=== PATIENT | female | born 1950 | race African-American/Black ===

== ENCOUNTER 2016-05-26 08:41 | Emergency (ER) | payer MEDICARE ==
[2016-05-26] MEDS ORDERED: LIDOCAINE 5% (700 MG) TRANSDERMAL ADH..PATCH TP ONE (10:51)
[2016-05-26 11:10] LABS: APPEARANCE,URINE CLEAR; BILIRUBIN,URINE NEGATIVE (NEGATIVE); GLUCOSE, URINE NEGATIVE (NEGATIVE); KETONES,URINE NEGATIVE (NEGATIVE); LEUKOCYTE ESTERASE,URINE TRACE (NEGATIVE); NITRITE,URINE NEGATIVE (NEGATIVE); PROTEIN,URINE 100 mg/dL (NEGATIVE); URINE SPECIFIC GRAVITY 1.017
[2016-05-26] MEDS ORDERED: MAGNESIUM CITRATE 296 ML BOTTLE PO ONE (12:42)
[2016-05-26] MEDS ORDERED: ONDANSETRON ODT 4 MG TAB (6 TAB/DSPK) PO PRN (12:42)
--- NOTE | 2016-05-26 12:46 | ER Document Report ---
ED General - General Chief Complaint: Flank Pain Stated Complaint: SIDE PAIN TRAVEL OUTSIDE OF THE [place] IN LAST 30 DAYS: No - HPI Patient complains to provider of: right flank pain Notes: Patient coming in for right flank pain ongoing for last 4 days. Patient denies any fevers chills nausea vomiting. Patient states difficult to move around states last bowel movement was 5 days ago. Patient states she does have a history of constipation the past she states that she is constipated again. Patient denies any urinary symptoms denies history of kidney stone - Related Data Allergies/Adverse Reactions: codeine Allergy (Verified 05/26/16 08:46) Past Medical History - Social History Smoking Status: Current Every Day Smoker Chew tobacco use (# tins/day): No Frequency of alcohol use: None Drug Abuse: None Family History: Reviewed & Not Pertinent Patient has suicidal ideation: No Patient has homicidal ideation: No Renal/ Medical History: Denies: Hx Peritoneal Dialysis Review of Systems - Review of Systems Constitutional: No symptoms reported EENT: No symptoms reported Cardiovascular: No symptoms reported Respiratory: No symptoms reported Gastrointestinal: No symptoms reported Genitourinary: Flank pain - Right Female Genitourinary: No symptoms reported Musculoskeletal: No symptoms reported Skin: No symptoms reported Hematologic/Lymphatic: No symptoms reported Neurological/Psychological: No symptoms reported -: Yes All other systems reviewed and negative Physical Exam - Vital signs Vitals: Temp Pulse Resp BP Pulse Ox 98.4 F 64 20 164/91 H 100 05/26/16 08:48 05/26/16 08:48 05/26/16 08:48 05/26/16 08:48 05/26/16 08:48 Interpretation: Normal - General General appearance: Appears well, Alert - HEENT Head: Normocephalic, Atraumatic Eyes: Normal Pupils: PERRL - Respiratory Respiratory status: No respiratory distress Chest status: Nontender Breath sounds: Normal Chest palpation: Normal - Cardiovascular Rhythm: Regular Heart sounds: Normal auscultation Murmur: No - Abdominal Inspection: Normal Distension: No distension Bowel sounds: Normal Tenderness: Nontender. No: Tender, McBurney's point, Echavarria's sign, Guarding, Rebound Organomegaly: No organomegaly - Back Back: Normal, Tender - Tenderness to the right paraspinal region - Extremities General upper extremity: Normal inspection, Nontender, Normal color, Normal ROM , Normal temperature General lower extremity: Normal inspection, Nontender, Normal color, Normal ROM , Normal temperature, Normal weight bearing. No: Reginaldo's sign - Neurological Neuro grossly intact: Yes Cognition: Normal Orientation: AAOx4 [place] Coma Scale Eye Opening: Spontaneous [place] Coma Scale Verbal: Oriented Nick Coma Scale Motor: Obeys Commands [place] Coma Scale Total: 15 Speech: Normal Motor strength normal: LUE, RUE, LLE, RLE Sensory: Normal - Psychological Associated symptoms: Normal affect, Normal mood - Skin Skin Temperature: Warm Skin Moisture: Dry Skin Color: Normal Course - Re-evaluation Re-evalutation: 05/26/16 18:38 Patient's KUB showed moderate stool burden in the right side of the colon. Patient will be treated with mag citrate and Zofran. Patient was encouraged to follow-up with her doctor. No signs of acute abdominal pathology. - Vital Signs Vital signs: Temp Pulse Resp BP Pulse Ox 99.3 F 51 L 20 142/75 H 99 05/26/16 13:09 05/26/16 13:09 05/26/16 08:48 05/26/16 13:09 05/26/16 13:09 - Laboratory Laboratory results interpreted by me: 05/26/16 10:55 Urine Protein 100 H Urine Urobilinogen 4.0 H Ur Leukocyte Esterase TRACE H Discharge - Discharge Clinical Impression: Constipation Qualifiers: Constipation type: unspecified constipation type Qualified Code(s): K59.00 - Constipation, unspecified Condition: Good Disposition: HOME, SELF-CARE Instructions: Constipation ([facility]) Additional Instructions: Your x-ray shows constipation especially on the right side of the colon. More likely this is why you are having right-sided abdominal pain. I will give you a bottle of mag citrate. Drink the entire bottle. This will help relieve your constipation. Follow-up with your primary care physician. Take Tylenol and Motrin for your pain Prescriptions: Ondansetron [Zofran Odt 4 mg Tablet] 1 - 2 tab PO Q4H PRN #15 tab.rapdis PRN Reason: For Nausea/Vomiting Referrals: LISSETH BLUM MD [Primary Care Provider] - Follow up in 3-5 days
[2016-05-26 13:21] VITALS: BP 142/75
== END 2016-05-26 13:26 | disposition home or self-care (01) ==
LOC: ER 08:41
DX: K59.00 Constipation, unspecified (principal); R10.9 Unspecified abdominal pain; F17.200 Nicotine dependence, unspecified, uncomplicated; Z88.5 Allergy status to narcotic agent
CPT/HCPCS: 99284; 81001; 74000; J3490; A9270

== ENCOUNTER → 2016-06-03 | Outpatient (CLI) | payer MEDICARE | LOC: RAD 08:35 | PROVIDERS: ATTEND Family Medicine | DX: M54.5 Low back pain (principal) | CPT/HCPCS: 72148 ==

== ENCOUNTER 2016-07-19 19:37 | Emergency (ER) | payer MEDICARE ==
[2016-07-19 20:13] LABS: ABSOLUTE EOSINOPHILS # (AUTO) 0.2 10^3/uL (0.0-0.6); ABSOLUTE LYMPHOCYTES (AUTO) 2.9 10^3/uL (0.5-4.7); ABSOLUTE MONOCYTES (AUTO) 0.7 10^3/uL (0.1-1.4); ABSOLUTE NEUT (AUTO) 4.4 10^3/uL (1.7-8.2); BASOPHILS % (AUTO) 0.3 % (0-2); EOSINOPHILS % (AUTO) 1.9 % (0-6); HEMATOCRIT 38.2 % (36.0-47.0); HEMOGLOBIN 12.8 g/dL (12.0-15.5); HGB HCT DIFFERENCE 0.2; LYMPHOCYTES % (AUTO) 35.3 % (13-45); MEAN CORPUSCULAR HEMOGLOBIN 29.3 pg (27.0-33.4); MEAN CORPUSCULAR HGB CONC 33.4 g/dL (32.0-36.0); MEAN CORPUSCULAR VOLUME 88 fl (80-97); MONOCYTES % (AUTO) 8.1 % (3-13); RED BLOOD COUNT 4.36 10^6/uL (3.72-5.28); RED CELL DISTRIBUTION WIDTH 14.3 % (11.5-14.0); SEGMENTED NEUTROPHILS % (AUTO) 54.4 % (42-78); WHITE BLOOD COUNT 8.1 10^3/uL (4.0-10.5)
[2016-07-19 20:18] LABS: PROTHROMBIN TIME 12.1 SEC (11.4-15.4)
[2016-07-19 20:19] LABS: PARTIAL THROMBOPLASTIN TIME 28.6 SEC (23.5-35.8)
[2016-07-19 20:32] LABS: ALANINE AMINOTRANSFERASE 20 U/L (9-52); ALBUMIN 4.2 g/dL (3.5-5.0); ALKALINE PHOSPHATASE 112 U/L (38-126); ANION GAP 14 (5-19); ASPARTATE AMINO TRANSFERASE 18 U/L (14-36); BILIRUBIN,DIRECT 0.3 mg/dL (0.0-0.4); BILIRUBIN,TOTAL 0.5 mg/dL (0.2-1.3); BLOOD UREA NITROGEN 18 mg/dL (7-20); CALCIUM 9.9 mg/dL (8.4-10.2); CARBON DIOXIDE 25 mmol/L (22-30); CHLORIDE 106 mmol/L (98-107); CREATINE KINASE 176 U/L (30-135); CREATININE RESULT 1.74 mg/dL (0.52-1.25); GLUCOSE 193 mg/dL (75-110); POTASSIUM 3.3 mmol/L (3.6-5.0); SODIUM 145.1 mmol/L (137-145); TOTAL PROTEIN 7.3 g/dL (6.3-8.2)
[2016-07-19] MEDS ORDERED: ALTEPLASE INJ 100 MG VIAL IV ONE (20:36)
[2016-07-19 20:44] LABS: CREATINE KINASE MB 1.36 ng/mL (<4.55); TROPONIN I 0.016 ng/mL
--- NOTE | 2016-07-19 20:54 | ER Document Report ---
ED General - General Chief Complaint: S/S of Possible Stroke Stated Complaint: STROKE SYMPTONS Mode of Arrival: Medic Information source: Relative, Emergency Med Personnel Notes: This is a 65-year-old female with a history of hypertension who presents with a possible stroke. Per EMS and per the family the last known normal was 1855 tonight at [facility]. At about 1900, family noted that the patient seemed abruptly confused and had a right-sided facial droop. She was not conversant and started stumbling. She was noted to fall into a seat. EMS was notified. Family states that patient has no prior history of stroke and has had no history of [employer] bleed or tumor in the past. She has had no surgical procedures in the past 3 months. She is not on any anticoagulants. TRAVEL OUTSIDE OF THE [place] IN LAST 30 DAYS: No - Related Data Allergies/Adverse Reactions: codeine Allergy (Verified 05/26/16 08:46) Past Medical History - General Information source: Relative Cannot obtain history due to: Altered mental status - Social History Smoking Status: Unknown if Ever Smoked Frequency of alcohol use: None Drug Abuse: None Family History: Reviewed & Not Pertinent - Past Medical History Cardiac Medical History: Reports: Hx Hypertension Renal/ Medical History: Denies: Hx Peritoneal Dialysis Surgical Hx: Negative - Immunizations Hx Diphtheria, Pertussis, Tetanus Vaccination: No Review of Systems - Review of Systems -: Yes ROS unobtainable due to patient's medical condition Physical Exam - Vital signs Vitals: Resp Pulse Ox 17 97 07/19/16 19:56 07/19/16 19:56 - Notes Notes: PHYSICAL EXAMINATION: GENERAL: obtunded, will open eyes on command with L gaze preference. She is maintainin her airway. HEAD: Atraumatic, normocephalic. EYES: Pupils 2-3mm bilaterally and sluggish ENT: nares patent, oropharynx clear without exudates. Moist mucous membranes. NECK: no lymphadenopathy LUNGS: Breath sounds clear to auscultation bilaterally and equal. No wheezes rales or rhonchi. HEART: bradycardic, regular ABDOMEN: Soft, normoactive bowel sounds EXTREMITIES: no edema NEUROLOGICAL: R facial droop. L gaze preference. Aphasia. Not following commands. Does have occasional purposeful movements to LUE and LLE (noted to scratch her nose). SKIN: Warm, Dry, normal turgor, no rashes or lesions noted. Course - Re-evaluation Re-evalutation: 07/19/16 20:51 Patient presents with symptoms of acute ischemic stroke. CT dimension with no hemorrhage but there is hyperdensity in the left MCA region. I discussed the case with neurology at [facility] Dr. Person and we discussed the NIH stroke scale which at this time is 22. At this time there are no contraindications to TPA administration. Patient has been hypertensive however her blood pressure has been below 185/110. She is on no anticoagulants. Her platelets are within normal limits. She has not had recent surgery. There was no seizure at stroke onset. She is deemed a candidate for tPA. Long discussion held with the family. We discussed the possible risks versus benefits of TPA administration and questions were answered. Family agrees to proceed in order to attempt to give patient best chance at neurologic recovery. They do understand the risk of cerebral hemorrhage or . 07/19/16 21:59 Patient has been reevaluated multiple times. At this time the critical care transport team is here to transport her to [facility]. Patient is more alert and is following some commands. She is moving right upper extremity. She is making unintelligible noises but still not speaking. Her blood pressure systolic is 199 at this point but she does seem to be anxious and uncomfortable. Discussed with the transport crew and we will give 50 g of fentanyl and 0.5 mg of Ativan and monitor her blood pressure response. - Vital Signs Vital signs: Temp Pulse Resp BP Pulse Ox 97.6 F 48 L 21 H 179/92 H 100 07/19/16 20:19 07/19/16 20:36 07/19/16 21:22 07/19/16 21:22 07/19/16 21:22 - Laboratory Result Diagrams: 07/19/16 19:59 07/19/16 19:59 Laboratory results interpreted by me: 07/19/16 07/19/16 07/19/16 19:54 19:59 19:59 RDW 14.3 H Sodium 145.1 H Potassium 3.3 L Creatinine 1.74 H Est GFR ( Amer) 36 L Est GFR (Non-Af Amer) 29 L Glucose 193 H POC Glucose 179 H Creatine Kinase 176 H - Diagnostic Test Radiology reviewed: Image reviewed - CT head: mild hyperdensity L MCA CXR: no acute process, Reports reviewed Critical Care Note - Critical Care Note Total time excluding time spent on procedures (mins): 60 - minutes of critical care time spent in direct contact evaluating and reevaluating the patient, treating symptoms, reviewing labs and studies and speaking with family and consultants excluding any procedures Discharge - Discharge Clinical Impression: Received intravenous tissue plasminogen activator (tPA) in emergency department CVA (cerebral vascular accident) Qualifiers: CVA mechanism: unspecified Qualified Code(s): I63.9 - Cerebral infarction, unspecified Condition: Critical Disposition: [facility]
[2016-07-19] MEDS ORDERED: FENTANYL CITRATE INJ/PF 100 MCG/2 ML AMPUL IV ONE (21:58)
[2016-07-19 22:11] VITALS: BP 187/74
--- NOTE | 2016-07-20 13:11 | EKG REPORT ---
SEVERITY:- ABNORMAL ECG - SINUS BRADYCARDIA LVH WITH SECONDARY REPOLARIZATION ABNORMALITY : Confirmed by: Sherry Downey MD 20-Jul-2016 13:09:45
== END 2016-07-19 22:11 | disposition short-term general hospital (02) ==
LOC: ER 19:37
DX: I63.9 Cerebral infarction, unspecified (principal); R47.01 Aphasia; R29.810 Facial weakness; I10 Essential (primary) hypertension; R00.1 Bradycardia, unspecified; Z88.5 Allergy status to narcotic agent
CPT/HCPCS: 93005; 99291; 96374; 96375; 36415; 82553; 82962; 82550; 85025; 85610; 85730; 80053; 84484; 71010; 70450; 93010; J3010; J2997